=== PATIENT | female | born 1980 | race American Indian/Alaskan Native ===

== ENCOUNTER 2017-07-14 20:47 | Emergency (ER) | payer BC, OTHER ==
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
== END 2017-07-14 21:51 | disposition home or self-care (01) ==
LOC: FB.ED 20:47
DX: S10.93XA Contusion of unspecified part of neck, initial encounter (principal); S40.021A Contusion of right upper arm, initial encounter; F43.23 Adjustment disorder with mixed anxiety and depressed mood; Y04.8XXA Assault by other bodily force, initial encounter
CPT/HCPCS: 99283